=== PATIENT | male | born 1995 | race Caucasian/White ===

== ENCOUNTER → 2018-01-10 | Outpatient (CLI) | payer OTHER ==
[~2018-01-10] MED LIST: ZOLP10TA6 PO
[2018-01-10 14:37] LABS: BASO % 0.6 %; BASO ABS # 0.04 K/uL (0-0.2); EOS % 3.8 %; EOS ABS # 0.25 K/uL (0-0.5); HEMATOCRIT 45.1 % (42-52); IG# 0.04 K/uL (0.00-0.02); LYMPH % 33.3 %; LYMPH ABS # 2.21 K/uL (1.2-3.4); MEAN CELL VOLUME 86.7 fL (80-100); MEAN CORPUSCULAR HEMOGLOBIN 30.8 pg (25-34); MEAN CORPUSCULAR HGB CONC 35.5 g/dl (32-36); MONO % 9.8 %; MONO ABS # 0.65 K/uL (0.11-0.59); NEUT % 51.9 %; NEUT ABS # 3.44 K/uL (1.4-6.5); PLATELET COUNT 216 K/uL (130-400); RED CELL DISTRIBUTION WIDTH SD 41.4 fL (36.4-46.3); WHITE BLOOD COUNT 6.63 K/uL (4.8-10.8)
== END | disposition home or self-care (01) ==
LOC: C.LAB1850 13:52
PROVIDERS: ATTEND Internal Medicine
DX: M62.89 Other specified disorders of muscle (principal)